=== PATIENT | female | born 1975 | race Two or more races ===

== ENCOUNTER 2024-10-18 11:15 | Inpatient (IN) | payer OTHER ==
[~2024-10-18] VITALS: Ht 30.5 cm; Wt 80.3 kg
[2024-10-18 13:55] VITALS: BP 96/57
[2024-10-18] MEDS ORDERED: MEGESTROL ACETA40 MG PO (13:59)
[2024-10-24 15:46] LABS: RH POSITIVE
[2024-10-26] MEDS ORDERED: CEFAZOLIN SODIUM 1,000 MG VIAL ONE (07:04)
[2024-10-26] MEDS ORDERED: POVIDONE-IODINE 118 ML BOTT TOP ONE (08:02)
[2024-10-26] MEDS ORDERED: SUGAMMADEX SODIUM 200 MG/2 ML VIAL IV ONE (10:57)
[2024-10-26] MEDS ORDERED: MORPHINE SULFATE 4 MG/ML VIAL IV ONE (12:10)
[2024-10-26] MEDS ORDERED: ONDANSETRON HCL 2 MG/ML VIAL IV PRN (12:30)
[2024-10-26] MEDS ORDERED: SODIUM CHLORIDE 0.45 % 1,000 ML IV SCH (12:30)
[2024-10-26] MEDS ORDERED: MORPHINE SULFATE 4 MG/ML CARTRIDGE IV PRN (12:30)
[2024-10-26] MEDS ORDERED: CEFOXITIN SODIUM 2,000 MG VIAL IV SCH (17:00)
[2024-10-26 17:47] LABS: HEMATOCRIT 38.9 % (36.0-45.00); HEMOGLOBIN 12.9 g/dL (12.0-15.00); MEAN CELL VOLUME 84.8 fL (80.00-100.00); MEAN CORPUSCULAR HEMOGLOBIN 28.1 pg (27.00-32.0); MEAN CORPUSCULAR HGB CONC 33.1 g/dl (32.0-36.0); PLATELET COUNT 225 K/uL (150-450); RED BLOOD COUNT 4.59 M/uL (4.00-6.00); RED CELL DISTRIBUTION WIDTH 13.5 % (11.5-14.5)
[2024-10-26 19:01] VITALS: BP 94/57; O2SAT 96
[2024-10-26] MEDS ORDERED: KETOROLAC TROMETHAMINE 30 MG VIAL IV SCH (21:00)
[2024-10-26] MEDS ORDERED: ENOXAPARIN SODIUM 40 MG/0.4 ML SYRINGE SUBCUTANEO SCH (21:00)
[2024-10-27 03:57] VITALS: BP 97/58; O2SAT 95
[2024-10-27] MEDS ORDERED: ACETAMINOPHEN WITH CODEINE 1 UDTAB TABLET PO PRN (08:45)
[2024-10-27] MEDS ORDERED: DICLOFENAC SODIUM 100 MG SUPP.RECT TOP PRN (09:00)
[2024-10-27] MEDS ORDERED: CEFAZOLIN SODIUM 1,000 MG VIAL IV SCH ×2 (09:00→13:00)
[2024-10-27] MEDS ORDERED: NAPROXEN 500 MG TABLET PO SCH (11:00)
[2024-10-27 15:51] LABS: HEMATOCRIT 37.7 % (36.0-45.00); HEMOGLOBIN 12.5 g/dL (12.0-15.00); MEAN CELL VOLUME 85.3 fL (80.00-100.00); MEAN CORPUSCULAR HEMOGLOBIN 28.3 pg (27.00-32.0); MEAN CORPUSCULAR HGB CONC 33.2 g/dl (32.0-36.0); PLATELET COUNT 230 K/uL (150-450); RED BLOOD COUNT 4.42 M/uL (4.00-6.00); RED CELL DISTRIBUTION WIDTH 13.8 % (11.5-14.5)
[2024-10-27 16:00] VITALS: BP 144/73; O2SAT 96
[2024-10-27] MEDS ORDERED: ENOXAPARIN SODIUM 40 MG/0.4 ML SYRINGE SUBCUTANEO SCH (21:00)
[2024-10-28 01:30] VITALS: BP 95/66; O2SAT 96
[2024-10-28] MEDS ORDERED: ACETAMINOPHEN-1 EAC2 PO (13:27)
[2024-10-28] MEDS ORDERED: DICLOFENAC SODI50 MG PO (13:28)
[2024-10-28] MEDS ORDERED: COLACE100 MG PO (13:30)
[2024-10-28] MEDS ORDERED: BACTRIM 400-801 EACH PO (13:30)
[2024-10-28] MEDS ORDERED: FAMOTIDINE40 MG PO (13:32)
== END 2024-10-28 15:26 | disposition home or self-care (01) | DRG 743 ==
LOC: ADM 11:15 → SURG 10-26 05:24 → O/R 10-26 05:24 → SURG 10-26 07:00 → EDSTATUS 10-26 11:15 → SURG 10-26 11:15 → CIR.AMB 10-26 11:15 → SURG 10-26 15:25
PROVIDERS: ADMIT Obstetrics & Gynecology; ATTEND Obstetrics & Gynecology
PROC: 0UT77ZZ Resection of Bilateral Fallopian Tubes, Via Natural or Artificial Opening (ICD-10-PCS; 2024-10-26)
PROC: 0UT27ZZ Resection of Bilateral Ovaries, Via Natural or Artificial Opening (ICD-10-PCS; 2024-10-26)
PROC: 0USG7ZZ Reposition Vagina, Via Natural or Artificial Opening (ICD-10-PCS; 2024-10-26)
PROC: 0T788DZ Dilation of Bilateral Ureters with Intraluminal Device, Via Natural or Artificial Opening Endoscopic (ICD-10-PCS; 2024-10-26)
PROC: 0UT97ZZ Resection of Uterus, Via Natural or Artificial Opening (ICD-10-PCS; principal; 2024-10-26 07:00)
DX: D25.1 Intramural leiomyoma of uterus (principal); D25.2 Subserosal leiomyoma of uterus; D25.0 Submucous leiomyoma of uterus; N84.0 Polyp of corpus uteri; N92.1 Excessive and frequent menstruation with irregular cycle